=== PATIENT | male | born 1980 | race Caucasian/White ===

== ENCOUNTER 2016-11-01 00:04 | Emergency (ER) | payer BC ==
[~2016-11-01] VITALS: Ht 180.3 cm; Wt 118.2 kg
[2016-11-01 01:47] VITALS: BP 135/83
== END 2016-11-01 02:23 | disposition home or self-care (01) ==
LOC: EMS 00:08
DX: S62.397A Other fracture of fifth metacarpal bone, left hand, initial encounter for closed fracture (principal); W01.0XXA Fall on same level from slipping, tripping and stumbling without subsequent striking against object, initial encounter; Y93.89 Activity, other specified; Y92.89 Other specified places as the place of occurrence of the external cause; Y99.8 Other external cause status
CPT/HCPCS: 99284